=== PATIENT | female | born 1985 | race African-American/Black ===

== ENCOUNTER 2019-06-28 16:57 | Emergency (ER) | payer MEDICARE, OTHER ==
[~2019-06-28] VITALS: Ht 175.3 cm; Wt 100.0 kg
[~2019-06-28 16:57] MED LIST: PHENOBARBITAL; QUET200T PO; RISP.5; VALP250S23 PO
[2019-06-28 18:51] VITALS: BP 120/72
== END 2019-06-28 18:54 | disposition home or self-care (01) ==
LOC: EMS 16:58
DX: J32.9 Chronic sinusitis, unspecified (principal); F41.9 Anxiety disorder, unspecified; F31.9 Bipolar disorder, unspecified; Z79.899 Other long term (current) drug therapy

== ENCOUNTER 2020-04-28 08:48 | Emergency (ER) | payer MEDICARE, OTHER ==
[~2020-04-28] VITALS: Ht 170.2 cm; Wt 86.4 kg
[~2020-04-28 08:48] MED LIST changes: -RISP.5; +RISP0.5T39
[2020-04-28] MEDS ORDERED: ACETAMINOPHEN 500 MG TABLET PO ONE (09:30)
[2020-04-28] MEDS ORDERED: IBUPROFEN 600 MG TABLET PO ONE (09:30)
[2020-04-28] MEDS ORDERED: AMOX TR/POT CLAV 875 MG/125 MG TABLET PO ONE (09:30)
[2020-04-28 09:47] VITALS: BP 119/65
== END 2020-04-28 09:48 | disposition home or self-care (01) ==
LOC: EMS 08:51
DX: K08.89 Other specified disorders of teeth and supporting structures (principal); F41.9 Anxiety disorder, unspecified; F31.9 Bipolar disorder, unspecified
CPT/HCPCS: Z7502; Z7610

== ENCOUNTER 2023-02-14 06:03 | Day surgery (SDC) | payer OTHER, MEDICARE ==
[~2023-02-14] VITALS: Ht 167.6 cm; Wt 100.0 kg
[~2023-02-14 06:03] MED LIST changes: +ERGO500054 PO; +LISI-892 PO; +LURA20TA PO
[2023-02-14] MEDS ORDERED: RINGERS SOLUTION,LACTATED 1,000 ML IV ONE ×2 (06:18→09:00)
[2023-02-14] MEDS ORDERED: AMPICILLIN SODIUM 2 GM/NS 100 ML IV ONE (07:04)
[2023-02-14] MEDS ORDERED: CHOL200074 PO (07:28)
[2023-02-14] MEDS ORDERED: PHEN20EL24 PO (07:28)
[2023-02-14] MEDS ORDERED: ATOR20TA65 PO (07:39)
[2023-02-14] MEDS ORDERED: RISP2TAB45 PO (07:39)
[2023-02-14] MEDS ORDERED: BENZ0.5T49 PO (07:39)
[2023-02-14] MEDS ORDERED: QUET300T19 PO (07:39)
[2023-02-14] MEDS ORDERED: CLON1TAB12 PO (07:39)
[2023-02-14] MEDS ORDERED: OXYB5TAB20 PO (07:39)
[2023-02-14] MEDS ORDERED: VALP250S27 PO (07:39)
[2023-02-14 08:05] LABS: BASOPHILS % (AUTO) 1.1 % (0.0-2.0); EOSINOPHILS % (AUTO) 2.3 % (1.0-6.0); HEMATOCRIT 38.2 % (36-46); HEMOGLOBIN 11.9 g/dL (12.0-16.0); LYMPHOCYTES # (AUTO) 3.2 K/uL (1.0-4.8); LYMPHOCYTES % (AUTO) 54.5 % (22.0-44.0); MEAN CORPUSCULAR HEMOGLOBIN 26.4 pg (26.0-34.0); MEAN CORPUSCULAR HGB CONC 31.1 G/dL (31.0-37.0); MEAN CORPUSCULAR VOLUME 85 fL (80-100); MONOCYTES % (AUTO) 16.7 % (2.0-9.0); NEUTROPHILS # (AUTO) 1.5 K/uL (1.8-7.7); NEUTROPHILS % (AUTO) 25.4 % (40.0-70.0); PLATELET COUNT (AUTO) 234 K/uL (150-450); RED BLOOD CELL COUNT(AUTO) 4.49 MIL/uL (4.00-5.20); RED CELL DISTRIBUTION WIDTH 14.7 % (11.5-14.5); WHITE BLOOD COUNT (AUTO) 5.9 K/uL (4.5-11.0)
[2023-02-14 08:24] LABS: ANION GAP 11 mmol/L (8-16); CALCIUM, TOTAL 9.5 mg/dL (8.8-10.5); CARBON DIOXIDE 26 mmol/L (22-29); CHLORIDE 100 mmol/L (98-107); CREATININE 0.72 mg/dL (0.60-1.30); GLOMERULAR FILTR. RATE CALC > 60 mL/min (>60); GLUCOSE,RANDOM 80 mg/dL (70-110); POTASSIUM 3.7 mmol/L (3.5-5.1); SODIUM SERUM 137 mmol/L (136-145); UREA NITROGEN, BLOOD 15 mg/dL (7-18)
[2023-02-14 08:25] LABS: INR 1.1 (0.9-1.1); PROTHROMBIN TIME 11.5 SEC (9.4-11.6)
[2023-02-14 08:31] LABS: ALANINE AMINOTRANSFERASE 19 U/L (12-78); ALBUMIN 3.9 g/dL (3.4-5.0); ALKALINE PHOSPHATASE 43 U/L (46-116); ASPARTATE AMINOTRANSFERASE 20 U/L (15-37); BILIRUBIN,TOTAL 0.2 mg/dL (0.1-1.0); TOTAL PROTEIN, SERUM 7.5 g/dL (6.4-8.2)
[2023-02-14] MEDS ORDERED: AMPICILLIN SODIUM 2 GM/NS 100 ML BAG IV ONE (09:50)
[2023-02-14] MEDS ORDERED: DEXAMETHASONE SOD PHOS 4 MG/ML VIAL IVP ONE (12:00)
[2023-02-14] MEDS ORDERED: ROCURONIUM BROMIDE 10 MG/ML 5 ML VIAL IVP ONE (12:00)
[2023-02-14] MEDS ORDERED: 0.9% SODIUM CHLORIDE 10 ML VIAL IVP ONE (12:00)
[2023-02-14] MEDS ORDERED: SUGAMMADEX SODIUM 200 MG/2 ML VIAL IVP ONE (12:00)
[2023-02-14] MEDS ORDERED: PROPOFOL 1% 20 ML VIAL IVP ONE (12:00)
[2023-02-14] MEDS ORDERED: LIDOCAINE/PF 2% 5 ML VIAL IM ONE (12:00)
== END 2023-02-14 12:10 | disposition home or self-care (01) ==
LOC: SURGERY 06:03
PROVIDERS: ATTEND Dentist General Practice
DX: K05.30 Chronic periodontitis, unspecified (principal); K02.9 Dental caries, unspecified; G43.909 Migraine, unspecified, not intractable, without status migrainosus; K59.00 Constipation, unspecified; E78.5 Hyperlipidemia, unspecified; K03.6 Deposits [accretions] on teeth; Z79.01 Long term (current) use of anticoagulants; Z79.899 Other long term (current) drug therapy; Z98.890 Other specified postprocedural states
CPT/HCPCS: 41899; 71045; 80053; 84703; 85025; 85610; 85730; 36415; 93005; J0290; J2704; J1100; J3490 ×2; Q9967; J7120

== ENCOUNTER 2023-07-05 14:13 | Emergency (ER) | payer MEDICARE, OTHER ==
[~2023-07-05] VITALS: Ht 167.6 cm; Wt 117.0 kg
[~2023-07-05 14:13] MED LIST changes: +ATOR20TA65 PO; +BENZ0.5T6 PO; +CHOL200074 PO; +CLON1TAB12 PO; -ERGO500054 PO; -LISI-892 PO; -LURA20TA PO; +OXYB5TAB20 PO; +PHEN20EL24 PO; -PHENOBARBITAL; -QUET200T PO; +QUET300T19 PO; -RISP0.5T39; +RISP2TAB45 PO; -VALP250S23 PO; +VALP250S27 PO
[2023-07-05] MEDS ORDERED: MEDR150V13 IM (14:36)
[2023-07-05] MEDS ORDERED: QUET300T2 PO (14:39)
[2023-07-05 14:46] VITALS: TEMP 97.9
[2023-07-05 15:02] LABS: BASOPHILS % (AUTO) 0.9 % (0.0-2.0); EOSINOPHILS % (AUTO) 1.9 % (1.0-6.0); HEMATOCRIT 38.7 % (36-46); HEMOGLOBIN 12.3 g/dL (12.0-16.0); LYMPHOCYTES # (AUTO) 4.6 K/uL (1.0-4.8); LYMPHOCYTES % (AUTO) 58.7 % (22.0-44.0); MEAN CORPUSCULAR HEMOGLOBIN 26.6 pg (26.0-34.0); MEAN CORPUSCULAR HGB CONC 31.7 G/dL (31.0-37.0); MEAN CORPUSCULAR VOLUME 84 fL (80-100); MONOCYTES # (AUTO) 1.2 K/uL (0.1-1.0); MONOCYTES % (AUTO) 15.6 % (2.0-9.0); NEUTROPHILS # (AUTO) 1.8 K/uL (1.8-7.7); NEUTROPHILS % (AUTO) 22.9 % (40.0-70.0); PLATELET COUNT (AUTO) 188 K/uL (150-450); RED BLOOD CELL COUNT(AUTO) 4.61 MIL/uL (4.00-5.20); RED CELL DISTRIBUTION WIDTH 15.4 % (11.5-14.5); WHITE BLOOD COUNT (AUTO) 7.9 K/uL (4.5-11.0)
[2023-07-05 15:14] LABS: ANION GAP 10 mmol/L (8-16); CALCIUM, TOTAL 9.8 mg/dL (8.8-10.5); CARBON DIOXIDE 28 mmol/L (22-29); CHLORIDE 103 mmol/L (98-107); GLOMERULAR FILTR. RATE CALC > 60 mL/min (>60); GLUCOSE,RANDOM 96 mg/dL (70-110); POTASSIUM 3.9 mmol/L (3.5-5.1); SODIUM SERUM 141 mmol/L (136-145); UREA NITROGEN, BLOOD 13 mg/dL (7-18)
[2023-07-05 15:20] LABS: ALANINE AMINOTRANSFERASE 27 U/L (12-78); ALBUMIN 4.1 g/dL (3.4-5.0); ALKALINE PHOSPHATASE 45 U/L (46-116); ASPARTATE AMINOTRANSFERASE 26 U/L (15-37); BILIRUBIN,TOTAL 0.2 mg/dL (0.1-1.0); PHENOBARBITAL 22 mcg/mL (15-40); TOTAL PROTEIN, SERUM 7.3 g/dL (6.4-8.2); VALPROIC ACID 86 mcg/mL (50-100)
[2023-07-05 15:25] LABS: ALCOHOL, BLOOD (SERUM) < 3 mg/dL (0-10)
[2023-07-05 17:26] LABS: GLUCOMETER DEV NAME(LOC) ER.6; GLUCOSE,POINT OF CARE 89 MG/DL (70-110)
[2023-07-05 18:20] VITALS: BP 152/95; PULSE 109; RESP 18
== END 2023-07-05 18:42 | disposition home or self-care (01) ==
LOC: EMS 14:24
DX: G40.909 Epilepsy, unspecified, not intractable, without status epilepticus (principal); F41.9 Anxiety disorder, unspecified
CPT/HCPCS: 99283; 80053; 80164; 80184; 82962; 85025; G0480